=== PATIENT | female | born 1995 | race American Indian/Alaskan Native ===

== ENCOUNTER 2024-03-06 13:46 | Outpatient (AMBR) | payer OTHER, SELFPAY ==
--- NOTE | 2024-03-06 14:50 | LAC.VISIT ---
Assessment LAC Breast Assessment Breast Assessment Bilateral: Breast Assessment Comment: mom's breasts are small, but she does have milk production. mom denies having any endocrine system issues (no diabetes, thyroid, PCOS, etc) small amount of glandular tissue. Alternative Milk Expression Alternative Milk Expression Alternative Method Used: Yes Method Used: Pumping Alternative Method Comment: mom using [employer]ra double electric pump, states she feels it does a good job. she is pumping after every feed, she only gets about 20 mls per side. this is after she breastfeeds baby on both breasts, time on each breast with baby is about 5-10 minutes. she states that after the breastfeed she will give baby about 40 ml of formula because she is still hungry. Alternative Method Used Reason: Poor Feeding Alternative Method Produced Milk / Colostrum: Yes Production Amount: 40 Production ounces or mls: mls Pump Used: Electric Pumping Frequency Per Day: 8 Pumping Frequency Comment: explained to mom to do some power pumping, as the pumping after each feed does not seem to be changing her milk supple. gave mom hand out on how to do this LAC Assessment Breast Feeding Assessment Date of : [birth year] Current Age of baby: 7 (days) Weight: 3265.865 g Current weight of baby: 3447.302 g # of Stool voids in last 24 hrs: 5 Stool Size: Medium Color of Stools: Yellow # of Urine voids in last 24 hrs: 4 Color of Urine: light yellow to clear Breast Feeding Ability: Fair [place] Complications Comment: baby has a hard time staying on breast, will slide down during the breastfeed. mom's nipple appears to be lipstick shaped. explained that as the feed goes if baby slips off to break latch and start over to get the deeper latch. [place] Activity Level: Rooting and Crying Muscle Tone: With In Normal Limits [place] Suck Quality: Rhythmic and Tongue Retracts Effective [place] Suck: Yes [place] Swallow: Audible and Observed [place] Jaw: With In Norml Limits [place] Lip Seal: Weak Suction, Excess Suction and Tight Lips Feeding Posistion: Cradle Additional Latch or Posistion Assistance Needed: Moderate Breast Feeding Comment: mom likes the cradle hold but has a hard time getting baby to latch and stay on the breast. showed her better positioning and hold but tended to return to the cradle hold. Pre Weight (before feeding): 3447.302 g Post Weight (post feeding): 3492.661 g % gained or lost: 1% Gain LAC Intervention Interventions Tools: Pump Discharge Follow Up Appointment Date and Time: 10 day Other Referral Made: Yes Feeding Preference at Discharge: Breast Milk with Supplementation LAC Latch Score LATCH Score Latch: Repeat Attempt to Hold Nipple Audible Swallow: Spontaneous, Intermittent, Frequent Nipple Type: Everted After Stimulation Comfort: Soft, Nontender Hold: Minimal Assistance Needed Total Score: 8 LAC [place] Oral Assessment [place] Oral Assessment Prenulum Level: Posterior Lip: Tight Upper Lip Palate: Normal / Intact Dental Referral made: Yes Oral Assessment Comment: [place] LAC Education Education : Education Topics: Benefits of , Feeding On Cue vs on Schedule, Hunger Cues, Infant Stomach Capacity, Milk Production, Nutrition, Risk of Improper Latch Position, Importance of Skin to Skin and Stomach Capacity With [place] to Formula Teaching Methods: Verbal instruction, Demonstration and Hand Out OP DC Assessment Discharge Follow Up Appointment Date and Time: 10 day Other Referral Made: Yes
--- NOTE | 2024-03-06 14:50 | LAC.VISIT ---
Assessment LAC Breast Assessment Breast Assessment Bilateral: Breast Assessment Comment: mom's breasts are small, but she does have milk production. mom denies having any endocrine system issues (no diabetes, thyroid, PCOS, etc) small amount of glandular tissue Alternative Milk Expression Alternative Milk Expression Alternative Method Used: Yes Method Used: Pumping Alternative Method Comment: mom using [employer] double electric pump, states she feels it does a good job. she is pumping after every feed, she only gets about 20 mls per side. this is after she breastfeeds baby on both breasts, time on each breast with baby is about 5-10 minutes. she states that after the breastfeed she will give baby about 40 ml of formula because she is still hungry Alternative Method Produced Milk / Colostrum: Yes Production Amount: 40 (mls) Production ounces or mls: mls Pump Used: Electric Pumping Frequency Per Day: 8 Pumping Frequency Comment: explained to mom to do some power pumping, as the pumping after each feed does not seem to be changing her milk supple. gave mom hand out on how to do this LAC Assessment Breast Feeding Assessment Date of : 02/[birth year]/24 Current Age of baby: 7 (days) Weight: 3265.865 kg Current weight of baby: 3447.302 kg # of Stool voids in last 24 hrs: 5 Stool Size: Medium Color of Stools: yellow [place] # of Urine voids in last 24 hrs: 4 Color of Urine: clear to [place] Breast Feeding Ability: Fair [place] Complications: Difficult Latch [place] Complications Comment: baby has a hard time staying on breast, will slide down during the breastfeed. mom's nipple appears to be lipstick shaped. explained that as the feed goes if baby slips off to break latch and start over to get the deeper latch. Activity Level: Awake / Alert and Crying Muscle Tone: With In Normal Limits Suck Quality: Rhythmic and Tongue Retracts Effective Suck: Yes Swallow: Audible and Observed Jaw: With In Norml Limits [place] Lip Seal: Weak Suction and Tight Lips Feeding Posistion: Cradle Additional Latch or Posistion Assistance Needed: Moderate Breast Feeding Comment: mom likes the cradle hold but has a hard time getting baby to latch and stay on the breast. showed her better positioning and hold but tended to return to the cradle hold. Pre Weight (before feeding): 3447.302 kg Post Weight (post feeding): 3492.661 kg % gained or lost: 1% Gain LAC Intervention Interventions Tools: Pump Techniques Discussed: Pumping Discharge Follow Up Appointment Date and Time: 10 days Other Referral Made: Yes Feeding Preference at Discharge: Breast Milk with Supplementation LAC Latch Score LATCH Score Latch: Repeat Attempt to Hold Nipple Audible Swallow: Spontaneous, Intermittent, Frequent Nipple Type: Everted After Stimulation Comfort: Soft, Nontender Hold: Minimal Assistance Needed Total Score: 8 LAC Education Education : Education Topics: Benefits of , Establishing Milk Supply, Feeding On Cue vs on Schedule, Hunger Cues, Infant Stomach Capacity, Milk Production, [place] Nutrition, Risk of Improper Latch Position and Infant Stomach Capacity With [place] to Formula Teaching Methods: Verbal instruction and Hand Out OP DC Assessment Discharge Follow Up Appointment Date and Time: 10 days Other Referral Made: Yes Visit Complete?: Yes
== END 2024-03-08 23:59 | disposition home or self-care (01) ==
LOC: HODLAC 13:46
DX: Z39.1 Encounter for care and examination of lactating mother (principal)